=== PATIENT | female | born 1960 | race Caucasian/White ===

== ENCOUNTER 2019-11-18 08:31 | Outpatient (CLI) | payer MEDICARE, MEDICAID, SELFPAY ==
--- NOTE | ~2019-11-18 | MM_ITS ---
EXAMINATION: MM screening sly BI w sugar HISTORY: Screening mammogram TECHNIQUE: Craniocaudal and mediolateral oblique 3-D tomosynthesis images were obtained and synthetic 2-D images were generated. CAD analysis was submitted and interpreted. COMPARISON: Comparison to multiple prior studies sequentially, with oldest reviewed study dated 10/17. BREAST PARENCHYMAL COMPOSITION: There are scattered areas of fibroglandular density. FINDINGS: There is no evidence of suspicious mass, calcification, or architectural distortion to sugg est malignancy in either breast. There has been no suspicious interval change. IMPRESSION: 1. No mammographic evidence of malignancy. 2. Recommend routine screening mammography in one year. BI-RADS Category 1: Negative Reviewed, dictated and finalized at location A. [employer]
== END 2019-11-18 08:32 | disposition home or self-care (01) ==
LOC: CHSIMG 08:36
PROVIDERS: PCP Internal Medicine; Visit Provider Internal Medicine
DX: Z12.31 Encounter for screening mammogram for malignant neoplasm of breast (principal)
CPT/HCPCS: 77063; 77067

== ENCOUNTER 2019-11-21 09:39 | Outpatient (CLI) | payer MEDICARE, MEDICAID, SELFPAY ==
--- NOTE | ~2019-11-21 | XR_ITS ---
EXAMINATION: XR heel LT min 2V EXAM DATE: 11/21/2019 10:15 INDICATION: No known recent injury provided at this time. Pain of the heels bilaterally. TECHNIQUE: Frontal and lateral projections of the right calcaneus. Correlation is made to contralate ral exam same date. FINDINGS: Tiny inferior calcaneal spur. There are no acute fractures or dislocations identified. Th ere is no subcutaneous gas. The soft tissue is unremarkable. There are no radiopaque foreign zenobia s. No evidence of stress fracture. IMPRESSION: Tiny left calcaneal inferior spur. Reviewed, dictated and finalized at location B. REMOVER
--- NOTE | ~2019-11-21 | XR_ITS ---
EXAMINATION: XR heel RT min 2V EXAM DATE: 11/21/2019 10:15 INDICATION: No known recent injury provided at this time. Pain of the right heel. TECHNIQUE: Frontal and lateral projections of the right calcaneus. Comparison is made to prior exami nation from 07/10/2017. FINDINGS: No periosteal reaction or band of sclerosis to suggest subacute stress fracture. There are no acute right calcaneus fractures or dislocations identified. There is no subcutaneous gas. The s oft tissue is unremarkable. There are no radiopaque foreign bodies. IMPRESSION: 1. Unremarkable XR heel RT min 2V exam. Reviewed, dictated and finalized at location B. [employer]
== END 2019-11-21 09:40 | disposition home or self-care (01) ==
LOC: CHSIMG 09:42
PROVIDERS: PCP Internal Medicine; Visit Provider Internal Medicine
DX: M79.672 Pain in left foot (principal); M79.671 Pain in right foot
CPT/HCPCS: 73650